=== PATIENT | female | born 1945 | race Caucasian/White ===

== ENCOUNTER 2016-08-29 14:01 | Emergency (ER) | payer OTHER ==
[~2016-08-29] VITALS: Ht 157.5 cm; Wt 75.5 kg
[2016-08-29 16:45] LABS: MCH 29.3 PG (29.0-34.0); MCHC 31.9 G/DL (30.0-36.0); MCV 91.7 FL (83-99); MEAN PLAT.VOLUME 9.9 uM^3 (9.5-12.4); PLATELET COUNT 269 K/uL (156-360); RBC DIS.WIDTH-SD 50.5 % (39-53); RED BLOOD COUNT 4.58 M/uL (3.80-5.20); WHITE BLOOD COUNT 8.4 K/uL (4.1-10.2)
[2016-08-29 16:56] LABS: CHLORIDE 108 mEq/L (99-109); POTASSIUM 3.8 mEq/L (3.7-5.4); SODIUM 141 mEq/L (136-147)
[2016-08-29 16:58] LABS: GLUCOSE 85 mg/dL (70-99)
[2016-08-29 16:59] LABS: ANION GAP 10 MEQ/L (2-14)
[2016-08-29 17:02] LABS: GFR ESTIMATE (CALCULATED) > 59 mL/min/
[2016-08-29 17:03] LABS: UREA NITROGEN (BUN) 9 mg/dL (9-23)
[2016-08-29] MEDS ORDERED: NAPROSYN500 MG PO (17:10)
[2016-08-29 18:27] VITALS: BP 131/81
== END 2016-08-29 18:30 | disposition home or self-care (01) ==
LOC: EME 14:01
PROVIDERS: Nurse Practitioner Family
DX: M26.609 Unspecified temporomandibular joint disorder, unspecified side (principal); E11.9 Type 2 diabetes mellitus without complications; J44.9 Chronic obstructive pulmonary disease, unspecified; E78.5 Hyperlipidemia, unspecified; I10 Essential (primary) hypertension
CPT/HCPCS: 70360; 70450; 80048; 85027; 99281; 99284